=== PATIENT | female | born 1960 | race Caucasian/White ===

== ENCOUNTER 2022-01-16 06:52 | Day surgery (SDC) | payer OTHER ==
[~2022-01-16] VITALS: Ht 160 cm; Wt 78.0 kg
[~2022-01-16 06:52] MED LIST: ESTRADIOL TOP; PROGESTERONE PO; [UNRECOGNIZED DRUG - OTHER] PO
--- NOTE | 2022-01-16 07:33 | NUR ---
Ambulatory in Day Surgery History, Chart, Medications and Allergies reviewed before start of procedure. Lungs clear T/O to Auscultation. Pre-Op teaching done. Pt verbalizes understanding. Patient States Post-Procedure ride home has been arranged with Daughter.
--- NOTE | 2022-01-16 10:34 | NUR ---
Patient up to Ambulate independently. Gait steady. Discharge instructions reviewed with patient. Patient verbalizes understanding. Copy given to patient to take home. Dressing to procedure site clean, dry, intact with no visible drainage, swelling, erythema or bruising noted. Patient States Post-Procedure ride home has been arranged. Patient reports completing Chlorhexadine shower X2 prior to admission to hospital. ALL BELONINGS SENT HOME WITH PT. GAVE ONE PAIN PILL.
== END 2022-01-16 23:31 | disposition home or self-care (01) ==
LOC: ORSCMMR 06:52 → ORD 08:30 → ORSCMMR 08:30
PROVIDERS: Surgery
PROC: 0WUF0JZ Supplement Abdominal Wall with Synthetic Substitute, Open Approach (ICD-10-PCS; principal; 2022-01-16 08:30)
DX: K42.0 Umbilical hernia with obstruction, without gangrene (principal); F41.9 Anxiety disorder, unspecified; F32.A Depression, unspecified; E66.9 Obesity, unspecified; Z68.30 Body mass index [BMI] 30.0-30.9, adult; F17.210 Nicotine dependence, cigarettes, uncomplicated
CPT/HCPCS: A9270; C1781; J0690; J1100; J1885; J2250; J2370; J2405; J2704; J2795; J3010; J7120

== ENCOUNTER 2022-10-27 13:51 | Day surgery (SDC) | payer OTHER ==
[~2022-10-27] VITALS: Ht 160 cm; Wt 73.7 kg
--- NOTE | 2022-10-27 15:30 | NUR ---
10/27/22 1530 Poonam Heaton PT UPDATED ON DELAY IN START TIME OF HER CASE DUE TO PREVIOUS CASE GOING IN LATER THAN SCHEDULED. BED IN LOW, LOCKED POSITION, CALL LIGHT IN REACH.
[2022-10-27 16:45] VITALS: BP 114/74
== END 2022-10-27 16:50 | disposition home or self-care (01) ==
LOC: ORSCSDS 13:51
PROVIDERS: Specialist
PROC: 0DBN8ZX Excision of Sigmoid Colon, Via Natural or Artificial Opening Endoscopic, Diagnostic (ICD-10-PCS; principal; 2022-10-27 15:15)
DX: Z12.11 Encounter for screening for malignant neoplasm of colon (principal); Z86.010 Personal history of colon polyps; K63.5 Polyp of colon; K64.8 Other hemorrhoids; K57.30 Diverticulosis of large intestine without perforation or abscess without bleeding; F41.8 Other specified anxiety disorders; Z85.820 Personal history of malignant melanoma of skin; F17.210 Nicotine dependence, cigarettes, uncomplicated
CPT/HCPCS: 88305; J0461; J2001; J2405; J2704; J7120; Q9968